=== PATIENT | female | born 1960 | race African-American/Black ===

== ENCOUNTER 2018-11-28 06:02 | Day surgery (SDC) | payer OTHER ==
[2018-11-28] MEDS ORDERED: LIDOCAINE 100 MG SYRINGE (07:24)
[2018-11-28] MEDS ORDERED: PROPOFOL 40 ML (07:24)
[2018-11-28] MEDS ORDERED: LABETALOL HCL 20MG INJ IV (07:30)
[2018-11-28] MEDS ORDERED: hydrALAzine 20 MG INJ IV (07:30)
== END 2018-11-28 11:35 | disposition home or self-care (01) ==
LOC: GIL 06:02
DX: K92.1 Melena (principal); K64.8 Other hemorrhoids; K44.9 Diaphragmatic hernia without obstruction or gangrene; K29.30 Chronic superficial gastritis without bleeding; I10 Essential (primary) hypertension
CPT/HCPCS: 43239; 88305; 88312